=== PATIENT | female | born 1990 | race Caucasian/White ===

== ENCOUNTER 2025-03-17 13:34 | Emergency (ER) | payer MEDICAID, SELFPAY ==
[2025-03-17 13:40] VITALS: BP 96/60
[2025-03-17 13:41] VITALS: BMI 27.5
[2025-03-17 13:58] LABS: % Basophils 0.4 % (0-2); % Eosinophils 3.2 % (0-6); % Immature Granulocytes 0.3 % (0-0.5); % Lymphocytes 38.4 % (20.5-51.1); % Monocytes 9.7 % (1.7-9.3); Absolute Eosinophils 0.2 10^3/uL (0-0.7); Absolute Lymphocytes 2.9 10^3/uL (1.2-3.4); Absolute Monocytes 0.7 10^3/uL (0.1-0.6); Absolute Neutrophils 3.6 10^3/uL (1.4-6.5); Hematocrit 35.5 % (37.0-47.0); Hemoglobin 12.7 g/dL (12.0-16.0); Mean Corp Hgb Conc. 35.8 g/dL (33.0-37.0); Mean Corpuscular Hgb 30.7 pg (27.0-31.0); Mean Corpuscular Volume 85.7 fL (81.0-99.0); Mean Platelet Volume 10.5 fL (7.4-10.4); Nucleated Red Blood Cells % 0 %; Platelet Count 206 10^3/uL (130-400); Red Blood Cell Count 4.14 10^6/uL (4.20-5.40); Red Cell Dist. Width 11.8 % (11.5-14.5); White Blood Cell Count 7.4 10^3/uL (4.8-10.8)
[2025-03-17 14:09] LABS: HCG, Serum Qualitative Screen Negative
[2025-03-17 14:16] LABS: ALT (SGPT) 90 U/L (0-35); AST (SGOT) 46 U/L (14-36); Albumin 4.2 g/dl (3.5-5.0); Alkaline Phosphatase 42 U/L (38-126); Blood Urea Nitrogen 13 mg/dl (7-17); Calcium 9.1 mg/dl (8.4-10.2); Carbon Dioxide 32 mmol/L (22-30); Chloride 101 mmol/L (98-107); Estimated Creatinine Clearance 97 ml/min; Glucose 85 mg/dl (70-99); Lipase 185 U/L (23-300); Potassium 3.8 mmol/L (3.5-5.1); Sodium 138 mmol/L (135-145); Total Bilirubin 0.6 mg/dl (0.2-1.3); Total Protein 6.8 g/dl (6.3-8.2); eGFR > 60.00
[2025-03-17 14:21] LABS: Troponin I < 0.012 ng/ml
--- NOTE | 2025-03-17 14:52 | ED.GENMED ---
History of Present Illness
General
Chief Complaint: Abdominal Pain
Source: patient
Exam Limitations: none
Time Seen by Provider: 03/17/25 14:42
Nursing documentation reviewed up to this point in time: agreed with
History of Present Illness
History of Present Illness:
Patient to ED from [facility] ([id number])-admitted there 2 days ago from [facility] in [place] for mood disturbance, psychosis. SHe reports chest pain and abdominal pain. States faith had abd. painx 1 week, chest pain x 2 days. Brought to ED by
EMS accompanied by staff from [facility].
Past History
Past History
ED Past Medical History: Psychiatric
Social History
Tobacco: Smoker
Drug: Marijuana
Review of Systems
Review of Systems
Allergies reviewed?: Yes
All Other Systems: ROS reviewed and negative except as documented in HPI and ROS
Constitutional: Reports no symptoms
EENT: Reports no symptoms
Respiratory: Reports no symptoms
Cardiac: Reports chest pain
ABD/GI: Reports abdominal pain (upper abd. pain)
: Reports no symptoms
Musculoskeletal: Reports no symptoms
Skin: Reports no symptoms
Neurological: Reports no symptoms
Psychiatric: Reports no symptoms
Phy Exam
General Physical Exam
General Presentation: well appearing and no apparent distress
General age: appears stated age
General Skin: warm and dry
General Habitus: normal
General Mental: other (agitated, paranoid)
Cardiovascular Exam
Cardiovascular Exam: regular rate/rhythm and no edema
Pulmonary Exam
Pulmonary Exam: lungs clear and no respiratory distress
Gastrointestinal Exam
Gastrointestinal Exam: normal bowel sounds, non tender, soft, no organomegaly, no pulsatile mass, non distended and no cva tenderness
Neurological Exam
Neurological Exam: alert, oriented x3 and CN II-XII intact
Musculoskeletal Exam
Musculoskeletal Exam: full ROM and neuro vasc intact
Skin Exam
Skin Exam: normal color, warm/dry and no rash
Psychiatric Exam
Psychiatric Exam: agitated
Course
Orders/Labs/Results
Orders:
Orders
03/17/25 13:44
Electrocardiogram (*1) Urgent
Reason for Study: Chest Pain
EKG- Treatment ONCE
03/17/25 13:49
Test Result ONCE
03/17/25 13:50
Complete Blood Count/With Diff Urgent
Comprehensive Metabolic Panel Urgent
HCG, Serum Qualitative Screen Urgent
Lipase Urgent
Troponin I Urgent
03/17/25 14:51
US Abdomen Complete/Upper Urgent
Comment:
Reason For Exam: upper abd. pain
03/17/25 15:43
Urinalysis Reflex To Culture Urgent
Date Specimen was Collected: 03/17/25
Time Specimen was Collected: 15:41
Urine Microscopic Reflex Cult Urgent
Urine Culture Urgent
MICHAEL Source: U
Specimen Description:
Date Specimen was Collected: 03/17/25
Time Specimen was Collected: 15:41
Abnormal Lab Results
03/17/25 03/17/25
13:50 15:43
RBC 4.14 L 10^6/uL
(4.20-5.40)
Hct 35.5 L %
(37.0-47.0)
MPV 10.5 H fL
(7.4-10.4)
Absolute Monos (auto) 0.7 H 10^3/uL
(0.1-0.6)
Monocytes % 9.7 H %
(1.7-9.3)
Carbon Dioxide 32 H mmol/L
(22-30)
AST 46 H U/L
(14-36)
ALT 90 H U/L
(0-35)
Leukocyte Esterase Rfl 3+ A
(Negative)
Urine WBC (Reflex) 11-15 A /HPF
(0-5)
Urine Bacteria (Reflex) Many A
(Negative)
03/17/25 13:50
03/17/25 13:50
Vital Signs
Initial and Last Documented VS:
Initial Vital Signs
Temp Pulse Resp Pulse Ox
98.6 F 66 16 100
03/17/25 13:37 03/17/25 13:37 03/17/25 13:37 03/17/25 13:37
Last Documented Vital Signs
Temp Pulse Resp BP Pulse Ox
98.6 F 85 12 96/70 97
03/17/25 13:37 03/17/25 17:34 03/17/25 17:34 03/17/25 17:34 03/17/25 17:34
*Radiology
Radiology exam reviewed: radiology read reviewed
*Pulse Oximetry
Patient hypoxic: no
*Critical Care Note
Total Time (30-74mins, 75-104mins- exclusive of procedures): Not Applicable
Update Note
Update Note:
Patient to ED from [facility] with complaint of upper abd. pain, vomiting, chest pain. SHe is agitated, paranoid. Believes she is being follwed and that she is being poisoned. Labs reviewed, mild ast/alt elevation noted however these values
are below her admission labs drawn for admission to [place]. Abdominal exam is unremarkable. Reports chest pain. EKG NSR, troponin neg. LCTA HRR. No concerning medical issues detected on exam today. Will discharge back to [facility].
Report given to [facility] by RN
ED Attending Note
-
Portions of this chart may have been created with voice recognition software.� Occasional wrong word or��sound alike� substitutions may have occurred due to the inherent limitations of voice recognition software.
Discharge Plan
Departure
Patient Disposition: Home (Routine Discharge)
Patient with high blood pressure during this ER visit?: No
Discharge Problem:
Abdominal pain, Chest pain
Instructions: Abdominal Pain, Chest pain - Discharge instructions
Prescriptions:
No Action
olanzapine 10 mg Tablet
10 mg PO HS
oxcarbazepine 300 mg Tablet
300 mg PO BID
gabapentin 800 mg Tablet
800 mg PO TID
omeprazole 20 mg Capsule,Delayed Release(Dr/Ec)
20 mg PO DAILY
buprenorphine HCl 8 mg Tablet, Sublingual
8 mg SUBLINGUAL TID
Referrals:
Jean Whaley [Other]
NONE,* [Family Provider] -
Activity Restrictions/Additional Instructions:
Return to the emergency department immediatley for any changes in/worsening of your symptoms.
Interventions
Interventions:
*Risk Screen - Suicide Last Done: 03/17/25 13:41
*General Assessment Last Done: 03/17/25 13:41
*Neglect/Abuse Screening Last Done: 03/17/25 13:41
*ED- Fall Risk Assessment Last Done: 03/17/25 13:37
*ED COVID-19 Vaccine History Last Done: 03/17/25 13:41
*Nursing Disposition Last Done: 03/17/25 17:35
ND-Gysiot-Dguribwpai Assessment Last Done: 03/17/25 13:43
Discharge Date and Time
Discharge Date/Time: 03/17/25 17:36
Print Language: UPPER SORBIAN
[2025-03-17 16:11] LABS: Urine Albumin Negative (Neg - Trace); Urine Bilirubin Negative (Negative); Urine Character Clear (Clear); Urine Color Yellow; Urine Glucose Negative (Negative); Urine Ketone Negative (Negative); Urine Leukocyte 3+ (Negative); Urine Nitrite Negative (Negative); Urine Occult Blood Negative (Negative); Urine Specific Gravity 1.015 (<1.030); Urine Urobilinogen Negative (Neg - 1+)
[2025-03-17 16:21] LABS: Urine Squamous Cell >30 /LPF (Few)
[2025-03-17 16:22] LABS: Urine Bacteria Many (Negative); Urine Red Blood Cell 0-2 /HPF (0-2)
[2025-03-17 17:34] VITALS: BP 96/70
== END 2025-03-17 17:36 ==
LOC: EMR 13:34
PROVIDERS: Emergency Medicine; Nurse Practitioner; EMERGENCY PHYSICIAN Student in an Organized Health Care Education/Training Program
DX: R10.9 Unspecified abdominal pain (principal); R07.89 Other chest pain; F17.200 Nicotine dependence, unspecified, uncomplicated; F22 Delusional disorders
CPT/HCPCS: 99285; 76700; 80053; 81003; 81015; 83690; 84484; 84703; 85025; 87086; 93005